=== PATIENT | female | born 2000 | race Caucasian/White ===

== ENCOUNTER 2024-05-11 10:43 | Emergency (ER) | payer BC ==
[2024-05-11] MEDS ORDERED: Acetaminophen 325 MG TAB ONE (11:13)
[2024-05-11] MEDS ORDERED: Lactated Ringer's 2,000 ML ONE (11:30)
[2024-05-11 11:43] LABS: Bilirubin Small (Negative); Blood, Urine Trace (Negative); Glucose, Urine (Dipstick) Negative (Negative); Ketone, Urine 40 mg/dL (Negative); Leukocyte Trace (Negative); Nitrite Positive (Negative); Protein, Urine (Dipstick) 30 mg/dL (Neg-Trace)
[2024-05-11 11:45] LABS: Clarity Cloudy (Clear)
[2024-05-11 11:47] LABS: Prothrombin Time 13.4 sec (12.0-14.7)
[2024-05-11 11:48] LABS: PTT 35.4 sec (22.9-36.1)
[2024-05-11 11:49] LABS: Bacteria/HPF 4+ HPF (None Seen); CAUTI Indications for Culture Fever or rigors; Mucous/LPF Few LPF (<2+); RBC/HPF 0-3 HPF (0-3); Sperm/HPF 1+ HPF (None Seen)
[2024-05-11 11:50] LABS: Urine Culture Reflex Yes Yes
[2024-05-11 11:54] LABS: Hematocrit 29.9 % (36.0-47.0); Hemoglobin 10.5 g/dL (12.0-16.0); Mean Corpuscular HGB CONC 35.2 g/dL (32.0-36.0); Mean Corpuscular Hemoglobin 31.4 pg (27.0-31.0); Mean Corpuscular Volume 89.1 fl (78.0-98.0); Platelet Count 186 10x3/uL (130-400); RBC Distribution Width 11.7 % (11.5-14.5); Red Blood Cell (RBC) Count 3.35 mill/uL (4.20-5.40); White Blood Cell (WBC) Count 8.8 10x3/uL (4.8-10.8)
[2024-05-11 12:00] LABS: ALT (SGPT) 11 U/L (Less than 34); AST (SGOT) 19 U/L (11-34); Alkaline Phosphatase 79 U/L (40-110); Anion Gap 16 mmol/L (10-20); BUN (Urea Nitrogen) 9 mg/dL (7.0-18.7); Bilirubin, Total 1.6 mg/dL (0.3-1.2); Calc. Creatinine Clearance 0 mL/min (70-130); Calcium 8.7 mg/dL (7.8-10.44); Carbon Dioxide 17 mmol/L (22-29); Chloride 105 mmol/L (98-107); Estimated GFR 131; Globulin 3.7 g/dL (2.4-3.5); Glucose 86 mg/dL (70-105); Lipase 15 U/L (8-78); Potassium 3.9 mmol/L (3.5-5.1); Protein, Total 6.7 g/dL (6.0-8.3); Sodium 134 mmol/L (136-145)
[2024-05-11 12:08] LABS: Band 6 % (5-11); Eosinophils 1 % (0-10); Lymphocytes 3 % (21-51); MDiff Complete? YES; Manual Diff?? YES; Monocytes 1 % (0-10); Neutrophil 81 % (42-75); Reactive Lymphocytes 8 % (0-10)
[2024-05-11 12:09] LABS: Hypochromia SLIGHT = 6-15 cells (100X) (0-5/hpf); Platelet Adequacy Comment Appears Adequate
[2024-05-11] MEDS ORDERED: cefTRIAXone (ROCEPHIN) 2 GM VIAL ONE (12:21)
[2024-05-11] MEDS ORDERED: Sodium Chloride 0.9% 100 ML ONE (12:21)
== END 2024-05-11 13:06 | disposition home or self-care (01) ==
LOC: MADERS 10:43
DX: O23.42 Unspecified infection of urinary tract in pregnancy, second trimester (principal); N39.0 Urinary tract infection, site not specified; O99.282 Endocrine, nutritional and metabolic diseases complicating pregnancy, second trimester; O99.012 Anemia complicating pregnancy, second trimester; E86.0 Dehydration; E80.6 Other disorders of bilirubin metabolism; Z3A.22 22 weeks gestation of pregnancy
CPT/HCPCS: 36415; 80053; 81001; 83605; 83690; 85025; 85610; 85730; 87040; 87077; 87086; 87428; 94760; 96361; 96365; J0696; J7120